=== PATIENT | female | born 1935 | race Caucasian/White ===

== ENCOUNTER 2016-09-12 18:23 | Emergency (ER) | payer OTHER ==
[~2016-09-12] VITALS: Ht 157.5 cm; Wt 60.1 kg
[~2016-09-12 18:23] MED LIST: ACIDOPHILUS1 EAC3 PO; ASCORBIC ACID; AZO CRANBERRY1 EAC1 PO; BACTRIM,SEPT1 TABLET PO; CEFTIN250 MG PO; COLACE100 MG PO; CRANBERRY450 M1 PO; CRANBERRY450 M3 PO; CYANOCOBAL1000 MCG/2 IM; DIOVAN160 MG PO; DOCUSATE SODIU100 MG PO; ENSURE113 GM PO; FLAGYL500 MG PO; GERI-LANTA LIQ355 ML PO; GLUCOCOM1 EACH MC; GLUCOMETER MC; HUMALOG100 UNIT/1 SC; INDERAL40 MG PO; LANTUS 10100 UNITS/ SC; LANTUS 3 M100 UNITS1 SC; LEVAQUIN500 MG PO; LEVAQUIN750 MG PO; LEVEMIR100 UNIT/2 SC; LISINOPRIL10 MG PO; LISINOPRIL5 MG PO; MACROBID100 MG PO; MIRALAX17 GM PO; MIRALAX255 GM PO; MIRTAZAPINE7.5 MG PO; NOVOLOG 10100 UNITS/ SC; ONDANSETRON HCL4 MG PO; PRINIVIL10 MG PO; PRINIVIL5 MG PO; PROPRANOLOL HCL40 MG PO; QUESTRAN PACKET4 GM PO; RANITIDINE HCL150 M1 PO; RANITIDINE HCL150 MG PO; REMERON15 M2 PO; TEST STRIPS MC; TYLENOL REGULA325 MG PO; VITRON-C TABLE1 EACH PO; ZANTAC150 MG PO; ZOFRAN4 MG PO; [UNRECOGNIZED DRUG - OTHER] PO; [UNRECOGNIZED DRUG - OTHER] PO
[2016-09-12 18:42] LABS: POINT-OF-CARE METER ID UU14100415
[2016-09-12 19:22] LABS: HEMATOCRIT 34.5 % (36.0-46.0); MCH 28.6 PG (29.0-34.0); MCHC 31.3 G/DL (30.0-36.0); MCV 91.5 FL (83-99); MEAN PLAT.VOLUME 9.9 uM^3 (9.5-12.4); PLATELET COUNT 310 K/uL (156-360); RBC DIS.WIDTH-CV 13.6 % (11.8-14.6); RBC DIS.WIDTH-SD 43.9 % (39-53); RED BLOOD COUNT 3.77 M/uL (3.80-5.20); WHITE BLOOD COUNT 9.4 K/uL (4.1-10.2)
[2016-09-12 19:35] LABS: CHLORIDE 105 mEq/L (99-109); POTASSIUM 4.9 mEq/L (3.7-5.4); SODIUM 139 mEq/L (136-147)
[2016-09-12 19:37] LABS: GLUCOSE 277 mg/dL (70-99)
[2016-09-12 19:38] LABS: ANION GAP 8 MEQ/L (2-14)
[2016-09-12 19:39] LABS: TOTAL BILIRUBIN 0.2 mg/dL (0.0-1.0)
[2016-09-12 19:41] LABS: ALKALINE PHOSPHATASE 73 IU/L (3-129); GFR ESTIMATE (CALCULATED) 38 mL/min/
[2016-09-12 19:42] LABS: UREA NITROGEN (BUN) 28 mg/dL (9-23)
[2016-09-12 19:44] LABS: LIPASE 290 U/L (1.0-51.0)
[2016-09-12 20:43] LABS: POINT-OF-CARE METER ID UU14100415
[2016-09-12 21:48] VITALS: BP 152/88
== END 2016-09-12 22:16 | disposition home or self-care (01) ==
LOC: EME → EDBD 18:23 → EME 22:16
PROVIDERS: Emergency Medicine
DX: E11.65 Type 2 diabetes mellitus with hyperglycemia (principal); Z79.4 Long term (current) use of insulin
CPT/HCPCS: 80048; 80053; 81003; 82948; 83690; 85027; 99281; 99285; J7030

== ENCOUNTER 2016-10-23 23:18 | Emergency (ER) | payer OTHER ==
[~2016-10-23] VITALS: Ht 157.5 cm; Wt 56.0 kg
[2016-10-23 23:51] LABS: HEMATOCRIT 41.3 % (36.0-46.0); MCH 28.3 PG (29.0-34.0); MCHC 30.5 G/DL (30.0-36.0); MCV 92.6 FL (83-99); MEAN PLAT.VOLUME 10.3 uM^3 (9.5-12.4); PLATELET COUNT 275 K/uL (156-360); RBC DIS.WIDTH-CV 14.3 % (11.8-14.6); RBC DIS.WIDTH-SD 48.3 % (39-53); RED BLOOD COUNT 4.46 M/uL (3.80-5.20)
[2016-10-24 00:22] LABS: CHLORIDE 103 mEq/L (99-109); POTASSIUM 4.4 mEq/L (3.7-5.4); SODIUM 140 mEq/L (136-147)
[2016-10-24 00:25] LABS: ANION GAP 11 MEQ/L (2-14)
[2016-10-24 00:28] LABS: GFR ESTIMATE (CALCULATED) 38 mL/min/
[2016-10-24 00:29] LABS: UREA NITROGEN (BUN) 21 mg/dL (9-23)
[2016-10-24 01:02] LABS: ADD MIUA? YES; BILIRUBIN NEGATIVE; BLOOD NEGATIVE; COLOR YELLOW ((YELLOW)); GLUCOSE (STRIP) NEGATIVE; KETONES 5; LEUKOCYTES SMALL; NITRITE NEGATIVE; PROTEIN (STRIP) 100; SPECIFIC GRAVITY 1.012 (1.000-1.030); UROBILINOGEN 0.2 MG/DL (0.2-1.0)
[2016-10-24 01:16] LABS: GLUCOSE 100 mg/dL (70-99)
[2016-10-24 01:32] LABS: POINT-OF-CARE METER ID UU14100415
[2016-10-24 01:36] LABS: CRYSTALS PRESENT; EPITHELIAL CELLS 2+ /HPF
[2016-10-24 01:38] LABS: BACTERIA 2+ /HPF; RED BLOOD CELLS NONE SEEN /HPF (0-5); UCUL ADDED? YES
[2016-10-24 01:40] LABS: AMORPHOUS URATES CRYSTALS OCC
[2016-10-24 01:42] LABS: MUCUS NONE SEEN /LPF
[2016-10-24] MEDS ORDERED: CIPRO250 MG PO (01:43)
[2016-10-24 03:46] LABS: POINT-OF-CARE METER ID UU14100415; POINT-OF-CARE USER ID NUTMMM10
[2016-10-24 04:00] VITALS: BP 120/46
[2016-10-26 13:18] LABS: POINT-OF-CARE METER ID UU13113702
== END 2016-10-24 03:40 | disposition home or self-care (01) ==
LOC: EME → EDBD 23:18 → EME 23:18
PROVIDERS: Emergency Medicine
DX: E11.649 Type 2 diabetes mellitus with hypoglycemia without coma (principal); E11.22 Type 2 diabetes mellitus with diabetic chronic kidney disease; I12.9 Hypertensive chronic kidney disease with stage 1 through stage 4 chronic kidney disease, or unspecified chronic kidney disease; N18.9 Chronic kidney disease, unspecified; Z79.4 Long term (current) use of insulin; N30.00 Acute cystitis without hematuria; F03.90 Unspecified dementia, unspecified severity, without behavioral disturbance, psychotic disturbance, mood disturbance, and anxiety; Z87.891 Personal history of nicotine dependence
CPT/HCPCS: 71010; 80048; 81003; 82948; 85027; 87086; 99281; 99285

== ENCOUNTER 2017-02-25 22:41 | Emergency (ER) | payer OTHER ==
[~2017-02-25] VITALS: Ht 165.1 cm; Wt 59.0 kg
[~2017-02-25 22:41] MED LIST changes: +CIPRO250 MG PO
[2017-02-25 23:25] LABS: HEMATOCRIT 35.6 % (36.0-46.0); MCH 28.8 PG (29.0-34.0); MCHC 31.2 G/DL (30.0-36.0); MCV 92.2 FL (83-99); MEAN PLAT.VOLUME 9.9 uM^3 (9.5-12.4); PLATELET COUNT 329 K/uL (156-360); RBC DIS.WIDTH-CV 13.8 % (11.8-14.6); RBC DIS.WIDTH-SD 46.2 % (39-53); RED BLOOD COUNT 3.86 M/uL (3.80-5.20); WHITE BLOOD COUNT 8.5 K/uL (4.1-10.2)
[2017-02-25 23:36] LABS: CHLORIDE 101 mEq/L (99-109); POTASSIUM 5.6 mEq/L (3.7-5.4); SODIUM 135 mEq/L (136-147)
[2017-02-25 23:39] LABS: ANION GAP 9 MEQ/L (2-14)
[2017-02-25 23:42] LABS: GFR ESTIMATE (CALCULATED) 33 mL/min/
[2017-02-25 23:43] LABS: UREA NITROGEN (BUN) 37 mg/dL (9-23)
[2017-02-25 23:47] LABS: GLUCOSE 464 mg/dL (70-99)
[2017-02-26 00:19] VITALS: BP 141/68
[2017-02-26 00:40] LABS: POINT-OF-CARE METER ID UU13113747
[2017-02-26 02:28] LABS: POINT-OF-CARE METER ID UU13113747
[2017-02-26] MEDS ORDERED: KEFLEX500 MG PO (12:29)
[2017-03-01 10:24] LABS: POINT-OF-CARE METER ID UU13113747
== END 2017-02-26 04:03 | disposition home or self-care (01) ==
LOC: EME → EDBD 22:41 → EME 22:41
PROVIDERS: Emergency Medicine
DX: E11.65 Type 2 diabetes mellitus with hyperglycemia (principal); E87.5 Hyperkalemia; G30.9 Alzheimer's disease, unspecified; F02.80 Dementia in other diseases classified elsewhere, unspecified severity, without behavioral disturbance, psychotic disturbance, mood disturbance, and anxiety; Z87.440 Personal history of urinary (tract) infections; Z87.891 Personal history of nicotine dependence; I10 Essential (primary) hypertension; Z79.4 Long term (current) use of insulin; Z85.028 Personal history of other malignant neoplasm of stomach; Z90.710 Acquired absence of both cervix and uterus
CPT/HCPCS: 80048; 82948; 85027; 99281; 99284; J7030

== ENCOUNTER 2017-02-26 10:52 | Emergency (ER) | payer OTHER ==
[~2017-02-26] VITALS: Ht 157.5 cm; Wt 60.1 kg
[2017-02-26 11:11] LABS: POINT-OF-CARE METER ID UU14100415
[2017-02-26 12:20] LABS: ADD MIUA? YES; BILIRUBIN NEGATIVE; BLOOD MODERATE; COLOR YELLOW ((YELLOW)); GLUCOSE (STRIP) >=500; KETONES NEGATIVE; LEUKOCYTES LARGE; NITRITE NEGATIVE; PROTEIN (STRIP) 30; SPECIFIC GRAVITY 1.009 (1.000-1.030); UROBILINOGEN 0.2 MG/DL (0.2-1.0)
[2017-02-26] MEDS ORDERED: KEFLEX500 MG PO (12:29)
[2017-02-26 12:37] VITALS: BP 150/68
[2017-02-26 12:40] LABS: POINT-OF-CARE METER ID UU14100415
[2017-02-26 12:50] LABS: HEMATOCRIT 43.5 % (36.0-46.0); MCH 28.3 PG (29.0-34.0); MCHC 30.8 G/DL (30.0-36.0); MCV 91.8 FL (83-99); PLATELET COUNT 331 K/uL (156-360); RBC DIS.WIDTH-CV 13.5 % (11.8-14.6); RBC DIS.WIDTH-SD 45.7 % (39-53); WHITE BLOOD COUNT 12.5 K/uL (4.1-10.2)
[2017-02-26 12:52] LABS: RED BLOOD COUNT 4.74 M/uL (3.80-5.20)
[2017-02-26 12:53] LABS: BACTERIA 3+ /HPF; CASTS PRESENT /LPF; CELLULAR CASTS 0-5 /LPF; EPITHELIAL CELLS 1+ /HPF; MUCUS NONE SEEN /LPF; UCUL ADDED? YES; WHITE BLOOD CELLS 15-20 /HPF (0-5)
[2017-02-26 12:55] LABS: CHLORIDE 105 mEq/L (99-109); POTASSIUM 5.4 mEq/L (3.7-5.4); SODIUM 139 mEq/L (136-147)
[2017-02-26 12:58] LABS: ANION GAP 10 MEQ/L (2-14)
[2017-02-26 13:00] LABS: GFR ESTIMATE (CALCULATED) 46 mL/min/
[2017-02-26 13:01] LABS: GLUCOSE 142 mg/dL (70-99); UREA NITROGEN (BUN) 29 mg/dL (9-23)
== END 2017-02-26 12:37 | disposition home or self-care (01) ==
LOC: EME 10:52
PROVIDERS: Emergency Medicine
DX: N39.0 Urinary tract infection, site not specified (principal); E11.9 Type 2 diabetes mellitus without complications; F03.90 Unspecified dementia, unspecified severity, without behavioral disturbance, psychotic disturbance, mood disturbance, and anxiety; K21.9 Gastro-esophageal reflux disease without esophagitis; E78.5 Hyperlipidemia, unspecified; I10 Essential (primary) hypertension; Z79.4 Long term (current) use of insulin; Z87.891 Personal history of nicotine dependence
CPT/HCPCS: 71010; 80048; 81003; 82948; 85027; 87077; 87086; 87186; 99281; 99284

== ENCOUNTER 2017-07-04 12:54 | Emergency (ER) | payer OTHER ==
[~2017-07-04] VITALS: Ht 157.5 cm; Wt 55.3 kg
[~2017-07-04 12:54] MED LIST changes: +KEFLEX500 MG PO
[2017-07-04 13:22] LABS: POINT-OF-CARE METER ID UU13113702
[2017-07-04 14:03] LABS: EOSINOPHIL (%) 3.4 % (0-5); EOSINOPHIL COUNT 0.3 K/uL (0-0.3); HEMATOCRIT 38.3 % (36.0-46.0); IMMATURE GRANULOCYTE (%) 0.4 % (0.0-0.7); INSTRUMENT ABS NEUTROPHIL CT 4.1 K/uL; MCH 29.3 PG (29.0-34.0); MCHC 31.3 G/DL (30.0-36.0); MCV 93.6 FL (83-99); MEAN PLAT.VOLUME 9.6 uM^3 (9.5-12.4); MONOCYTE (%) 15.1 % (3-12); MONOCYTE COUNT 1.2 K/uL (0-0.8); NEUTROPHIL (%) 54.1 % (45-76); NEUTROPHIL COUNT 4.1 K/uL (1.8-6.4); PLATELET COUNT 335 K/uL (156-360); RBC DIS.WIDTH-CV 14.4 % (11.8-14.6); RBC DIS.WIDTH-SD 49.7 % (39-53); RED BLOOD COUNT 4.09 M/uL (3.80-5.20); WHITE BLOOD COUNT 7.6 K/uL (4.1-10.2)
[2017-07-04 14:11] LABS: CHLORIDE 105 mEq/L (99-109); SODIUM 136 mEq/L (136-147)
[2017-07-04 14:13] LABS: GLUCOSE 240 mg/dL (70-99)
[2017-07-04 14:14] LABS: ANION GAP 5 MEQ/L (2-14)
[2017-07-04 14:17] LABS: GFR ESTIMATE (CALCULATED) 46 mL/min/
[2017-07-04 14:18] LABS: UREA NITROGEN (BUN) 24 mg/dL (9-23)
[2017-07-04 15:08] LABS: POINT-OF-CARE METER ID UU13113702
[2017-07-04 15:29] LABS: POINT-OF-CARE METER ID UU13113702
[2017-07-04 16:13] VITALS: BP 145/68
== END 2017-07-04 17:01 | disposition home or self-care (01) ==
LOC: EME 12:54
PROVIDERS: Emergency Medicine
DX: E11.65 Type 2 diabetes mellitus with hyperglycemia (principal); Z66 Do not resuscitate; E78.5 Hyperlipidemia, unspecified; F32.9 Major depressive disorder, single episode, unspecified; I10 Essential (primary) hypertension; K21.9 Gastro-esophageal reflux disease without esophagitis; D64.9 Anemia, unspecified; F03.90 Unspecified dementia, unspecified severity, without behavioral disturbance, psychotic disturbance, mood disturbance, and anxiety; Z87.440 Personal history of urinary (tract) infections; Z79.4 Long term (current) use of insulin; Z88.8 Allergy status to other drugs, medicaments and biological substances
CPT/HCPCS: 80048; 82948; 85025; 99281; 99284; J7120

== ENCOUNTER 2017-07-08 20:20 | Emergency (ER) | payer OTHER ==
[~2017-07-08] VITALS: Ht 162.6 cm; Wt 41.7 kg
[2017-07-08 20:56] LABS: BASOPHIL COUNT 0.1 K/uL (0-0.1); EOSINOPHIL (%) 3.4 % (0-5); EOSINOPHIL COUNT 0.2 K/uL (0-0.3); HEMATOCRIT 37.8 % (36.0-46.0); IMMATURE GRANULOCYTE (%) 0.3 % (0.0-0.7); INSTRUMENT ABS NEUTROPHIL CT 3.1 K/uL; LYMPHOCYTE COUNT 2.2 K/uL (1.0-2.8); MCH 29.3 PG (29.0-34.0); MCHC 31.7 G/DL (30.0-36.0); MCV 92.2 FL (83-99); MEAN PLAT.VOLUME 9.5 uM^3 (9.5-12.4); MONOCYTE (%) 17.4 % (3-12); MONOCYTE COUNT 1.2 K/uL (0-0.8); NEUTROPHIL (%) 45.6 % (45-76); NEUTROPHIL COUNT 3.1 K/uL (1.8-6.4); NRBC (%) 0.3 /100 WBC (0-0); PLATELET COUNT 314 K/uL (156-360); RBC DIS.WIDTH-SD 47.4 % (39-53); WHITE BLOOD COUNT 6.8 K/uL (4.1-10.2)
[2017-07-08 20:58] LABS: CARBON DIOXIDE (BICARBONATE) 31.1 MEQ/L (20-31)
[2017-07-08 21:06] LABS: CHLORIDE 101 mEq/L (99-109); POTASSIUM 4.8 mEq/L (3.7-5.4)
[2017-07-08 21:07] LABS: SODIUM 136 mEq/L (136-147)
[2017-07-08 21:08] LABS: GLUCOSE 324 mg/dL (70-99)
[2017-07-08 21:10] LABS: ANION GAP 9 MEQ/L (2-14)
[2017-07-08 21:12] LABS: GFR ESTIMATE (CALCULATED) 38 mL/min/
[2017-07-08 21:13] LABS: UREA NITROGEN (BUN) 18 mg/dL (9-23)
[2017-07-08 22:16] LABS: POINT-OF-CARE METER ID UU13113747
[2017-07-08 23:00] VITALS: BP 165/49
== END 2017-07-08 23:07 | disposition home or self-care (01) ==
LOC: EME → EDBD 20:20 → EME 23:07
PROVIDERS: Emergency Medicine
DX: E11.65 Type 2 diabetes mellitus with hyperglycemia (principal); Z79.4 Long term (current) use of insulin; F03.90 Unspecified dementia, unspecified severity, without behavioral disturbance, psychotic disturbance, mood disturbance, and anxiety; I10 Essential (primary) hypertension; Z87.440 Personal history of urinary (tract) infections; Z87.891 Personal history of nicotine dependence
CPT/HCPCS: 80048; 81003; 82803; 82948; 85025; 93005; 99281; 99285; J7030

== ENCOUNTER 2017-07-30 23:18 | Inpatient (IN) | payer OTHER ==
[~2017-07-30] VITALS: Ht 162.6 cm; Wt 51.8 kg
[2017-07-30 23:47] LABS: BASOPHIL (%) 0.4 % (0-1); BASOPHIL COUNT 0.1 K/uL (0-0.1); EOSINOPHIL (%) 1.3 % (0-5); EOSINOPHIL COUNT 0.2 K/uL (0-0.3); HEMATOCRIT 40.5 % (36.0-46.0); HEMOGLOBIN 13.2 G/DL (11.9-15.5); IMMATURE GRANULOCYTE (%) 0.6 % (0.0-0.7); LYMPHOCYTE (%) 11.1 % (15-42); LYMPHOCYTE COUNT 1.5 K/uL (1.0-2.8); MCH 30.3 PG (29.0-34.0); MCHC 32.6 G/DL (30.0-36.0); MCV 93.1 FL (83-99); MONOCYTE (%) 11.7 % (3-12); MONOCYTE COUNT 1.6 K/uL (0-0.8); NEUTROPHIL (%) 74.9 % (45-76); NEUTROPHIL COUNT 10.4 K/uL (1.8-6.4); RBC DIS.WIDTH-CV 15.2 % (11.8-14.6); RBC DIS.WIDTH-SD 52.5 % (39-53); RED BLOOD COUNT 4.35 M/uL (3.80-5.20); WHITE BLOOD COUNT 13.9 K/uL (4.1-10.2)
[2017-07-30 23:51] LABS: PLATELET COUNT 421 K/uL (156-360)
[2017-07-30 23:53] LABS: ALBUMIN 3.6 g/dL (3.2-4.8)
[2017-07-30 23:54] LABS: CHLORIDE 105 mEq/L (99-109); POTASSIUM 3.9 mEq/L (3.7-5.4); SODIUM 137 mEq/L (136-147)
[2017-07-30 23:56] LABS: TOTAL PROTEIN 8.5 g/dL (6.4-8.3)
[2017-07-30 23:59] LABS: ALKALINE PHOSPHATASE 357 IU/L (3-129)
[2017-07-31] LABS: CREATININE 0.9 mg/dL (0.6-1.3); GFR ESTIMATE (CALCULATED) > 59 mL/min/
[2017-07-31 00:01] LABS: AST (GOT) 166 IU/L (2-34); UREA NITROGEN (BUN) 21 mg/dL (9-23)
[2017-07-31 00:03] LABS: ALT (GPT) 248 IU/L (3-49)
[2017-07-31 00:07] LABS: GLUCOSE 37 mg/dL (70-99)
[2017-07-31 03:06] LABS: APPEARANCE CLOUDY ((CLEAR)); BILIRUBIN NEGATIVE; BLOOD NEGATIVE; COLOR AMBER ((YELLOW)); GLUCOSE (STRIP) >=500; KETONES NEGATIVE; LEUKOCYTES SMALL; NITRITE NEGATIVE; PROTEIN (STRIP) 100; SPECIFIC GRAVITY 1.011 (1.000-1.030); UROBILINOGEN 0.2 MG/DL (0.2-1.0)
[2017-07-31 03:24] LABS: RED BLOOD CELLS NONE SEEN /HPF (0-5)
[2017-07-31 03:25] LABS: AMORPHOUS URATES CRYSTALS 3+; BACTERIA 3+ /HPF; EPITHELIAL CELLS 1+ /HPF; MUCUS NONE SEEN /LPF; UCUL ADDED? YES
[2017-07-31 12:00] LABS: DIRECT BILIRUBIN 1.3 mg/dL (0.0-0.3)
[2017-07-31 17:04] VITALS: BP 145/67
[2017-07-31 17:56] LABS: INTER. NORMALIZED RATIO 1.1
[2017-07-31 17:59] LABS: PTT 33.7 SEC (25-37)
[2017-07-31] MEDS ORDERED: LOTRISONE15 GM TP (18:12)
[2017-07-31] MEDS ORDERED: AMARYL2 MG PO (18:13)
[2017-07-31] MEDS ORDERED: HUMALOG100 UNIT/2 SC (18:15)
[2017-07-31] MEDS ORDERED: ZESTRIL5 MG PO (18:16)
[2017-07-31] MEDS ORDERED: LEVEMIR FL100 UNIT/1 SC (18:16)
[2017-07-31] MEDS ORDERED: REMERON15 M2 PO (18:20)
[2017-07-31] MEDS ORDERED: INDERAL40 MG PO (18:21)
[2017-07-31] MEDS ORDERED: PNV PRENATAL P1 EACH PO (18:21)
[2017-07-31] MEDS ORDERED: SENNA8.6 MG PO (18:22)
[2017-07-31] MEDS ORDERED: ASCORBIC ACID500 M3 PO (18:23)
[2017-07-31] MEDS ORDERED: ORAZINC220 MG PO (18:24)
[2017-07-31] MEDS ORDERED: DUONEB 2.5-0.5 M3 ML AEROSOL (18:24)
[2017-07-31] MEDS ORDERED: PAIN RELIEF325 M1 PO (18:25)
[2017-07-31] MEDS ORDERED: MAALOX ADVANCE355 ML PO (18:26)
[2017-07-31] MEDS ORDERED: TUSSIN100 MG/5 M PO (18:27)
[2017-07-31 23:44] VITALS: BP 141/64
[2017-08-01 07:00] VITALS: BP 170/27
[2017-08-01 07:39] LABS: ALBUMIN 2.8 G/DL (3.2-4.8); ALKALINE PHOSPHATASE 286 IU/L (3-129); ALT (GPT) 157 IU/L (3-49); AST (GOT) 94 IU/L (2-34); CHLORIDE 105 MEQ/L (99-109); CREATININE 0.7 MG/DL (0.6-1.3); DIRECT BILIRUBIN 0.9 mg/dL (0.0-0.3); GFR ESTIMATE (CALCULATED) > 59 mL/min/; GLUCOSE 172 mg/dL (70-99); POTASSIUM 3.8 MEQ/L (3.7-5.4); SODIUM 137 MEQ/L (136-147); TOTAL BILIRUBIN 1.7 MG/DL (0.0-1.0); TOTAL PROTEIN 5.8 G/DL (6.4-8.3); UREA NITROGEN (BUN) 13 mg/dL (9-23)
[2017-08-01 07:49] LABS: HEMATOCRIT 33.1 % (36.0-46.0); HEMOGLOBIN 10.4 G/DL (11.9-15.5); MCH 29.3 PG (29.0-34.0); MCHC 31.4 G/DL (30.0-36.0); MCV 93.2 FL (83-99); PLATELET COUNT 309 K/uL (156-360); RBC DIS.WIDTH-SD 52.1 % (39-53); RED BLOOD COUNT 3.55 M/uL (3.80-5.20); WHITE BLOOD COUNT 8.6 K/uL (4.1-10.2)
[2017-08-01 12:26] VITALS: BP 165/61
[2017-08-01 16:11] VITALS: BP 138/61; BP 1385/61
[2017-08-01 20:51] VITALS: BP 165/72
[2017-08-01 23:34] VITALS: BP 127/62
[2017-08-02 07:55] LABS: Estimated Average Glucose 160 mg/dL (70-123); HEMOGLOBIN A1c (GLYCOHEMOGLOB) 7.2 % HGB (Below 5.7)
[2017-08-02 08:21] LABS: ALBUMIN 2.8 G/DL (3.2-4.8); ALKALINE PHOSPHATASE 238 IU/L (3-129); ALT (GPT) 143 IU/L (3-49); AST (GOT) 79 IU/L (2-34); CHLORIDE 102 MEQ/L (99-109); CREATININE 0.7 MG/DL (0.6-1.3); DIRECT BILIRUBIN 0.7 mg/dL (0.0-0.3); GFR ESTIMATE (CALCULATED) > 59 mL/min/; GLUCOSE 129 mg/dL (70-99); POTASSIUM 3.9 MEQ/L (3.7-5.4); SODIUM 137 MEQ/L (136-147); TOTAL BILIRUBIN 1.3 MG/DL (0.0-1.0); UREA NITROGEN (BUN) 10 mg/dL (9-23)
[2017-08-02 08:43] VITALS: BP 125/60
[2017-08-02 15:00] VITALS: BP 130/66
[2017-08-03 00:05] VITALS: BP 127/80
[2017-08-03 07:12] LABS: HEMATOCRIT 35.6 % (36.0-46.0); HEMOGLOBIN 11.6 G/DL (11.9-15.5); MCH 30.7 PG (29.0-34.0); MCHC 32.6 G/DL (30.0-36.0); MCV 94.2 FL (83-99); PLATELET COUNT 311 K/uL (156-360); RBC DIS.WIDTH-CV 14.7 % (11.8-14.6); RBC DIS.WIDTH-SD 51.2 % (39-53); RED BLOOD COUNT 3.78 M/uL (3.80-5.20); WHITE BLOOD COUNT 11.4 K/uL (4.1-10.2)
[2017-08-03 07:30] LABS: ALKALINE PHOSPHATASE 223 IU/L (3-129); ALT (GPT) 110 IU/L (3-49); AST (GOT) 50 IU/L (2-34); CHLORIDE 98 MEQ/L (99-109); CREATININE 0.7 MG/DL (0.6-1.3); GFR ESTIMATE (CALCULATED) > 59 mL/min/; GLUCOSE 185 mg/dL (70-99); POTASSIUM 3.7 MEQ/L (3.7-5.4); SODIUM 134 MEQ/L (136-147); TOTAL BILIRUBIN 1.3 MG/DL (0.0-1.0); TOTAL PROTEIN 6.5 G/DL (6.4-8.3); UREA NITROGEN (BUN) 8 mg/dL (9-23)
[2017-08-03 07:59] VITALS: BP 137/63
[2017-08-03 15:38] VITALS: BP 125/53
[2017-08-03 19:17] LABS: HEMATOCRIT 34.9 % (36.0-46.0); MCH 29.6 PG (29.0-34.0); MCHC 31.5 G/DL (30.0-36.0); MCV 93.8 FL (83-99); PLATELET COUNT 329 K/uL (156-360); RBC DIS.WIDTH-CV 14.5 % (11.8-14.6); RBC DIS.WIDTH-SD 50.6 % (39-53); RED BLOOD COUNT 3.72 M/uL (3.80-5.20)
[2017-08-03 19:42] LABS: ALKALINE PHOSPHATASE 185 IU/L (3-129); ALT (GPT) 97 IU/L (3-49); AST (GOT) 40 IU/L (2-34); DIRECT BILIRUBIN 0.4 mg/dL (0.0-0.3); IRON 16 MCG/DL (35-150); TOTAL BILIRUBIN 1.2 MG/DL (0.0-1.0); TOTAL PROTEIN 6.8 G/DL (6.4-8.3); TRANSFERRIN SATUR. 10 % (20-55)
[2017-08-03 19:59] LABS: FERRITIN 118 NG/ML (10-291)
[2017-08-03 23:25] VITALS: BP 136/81
[2017-08-04 07:40] VITALS: BP 116/58
[2017-08-04 08:51] LABS: HEMATOCRIT 35.6 % (36.0-46.0); HEMOGLOBIN 11.4 G/DL (11.9-15.5); MCH 30.4 PG (29.0-34.0); MCV 94.9 FL (83-99); PLATELET COUNT 326 K/uL (156-360); RBC DIS.WIDTH-CV 14.6 % (11.8-14.6); RED BLOOD COUNT 3.75 M/uL (3.80-5.20); WHITE BLOOD COUNT 10.3 K/uL (4.1-10.2)
[2017-08-04 09:49] LABS: ALBUMIN 2.9 G/DL (3.2-4.8); ALKALINE PHOSPHATASE 184 IU/L (3-129); ALT (GPT) 78 IU/L (3-49); AST (GOT) 34 IU/L (2-34); CHLORIDE 99 MEQ/L (99-109); CREATININE 0.8 MG/DL (0.6-1.3); GFR ESTIMATE (CALCULATED) > 59 mL/min/; GLUCOSE 121 mg/dL (70-99); POTASSIUM 4.2 MEQ/L (3.7-5.4); SODIUM 136 MEQ/L (136-147); TOTAL BILIRUBIN 1.3 MG/DL (0.0-1.0); TOTAL PROTEIN 6.2 G/DL (6.4-8.3); UREA NITROGEN (BUN) 11 mg/dL (9-23)
[2017-08-04 15:38] VITALS: BP 125/60
[2017-08-04 23:58] VITALS: BP 105/52
[2017-08-05 07:00] VITALS: BP 107/58
[2017-08-05] MEDS ORDERED: AMOX TR-K CLV1 EAC4 PO (08:30)
[2017-08-05] MEDS ORDERED: LEVEMIR100 UNIT/2 SC (08:30)
[2017-08-05 09:22] LABS: HEMATOCRIT 35.8 % (36.0-46.0); HEMOGLOBIN 11.6 G/DL (11.9-15.5); MCH 30.4 PG (29.0-34.0); MCHC 32.4 G/DL (30.0-36.0); PLATELET COUNT 392 K/uL (156-360); RBC DIS.WIDTH-CV 14.7 % (11.8-14.6); RBC DIS.WIDTH-SD 51.4 % (39-53); RED BLOOD COUNT 3.81 M/uL (3.80-5.20); WHITE BLOOD COUNT 13.3 K/uL (4.1-10.2)
[2017-08-05 09:26] LABS: ALKALINE PHOSPHATASE 161 IU/L (3-129); ALT (GPT) 64 IU/L (3-49); AST (GOT) 36 IU/L (2-34); CHLORIDE 97 MEQ/L (99-109); DIRECT BILIRUBIN 0.6 mg/dL (0.0-0.3); GFR ESTIMATE (CALCULATED) 57 mL/min/; POTASSIUM 3.7 MEQ/L (3.7-5.4); SODIUM 136 MEQ/L (136-147); TOTAL BILIRUBIN 1.3 MG/DL (0.0-1.0); UREA NITROGEN (BUN) 20 mg/dL (9-23)
[2017-08-05 09:28] LABS: GLUCOSE 63 mg/dL (70-99)
[2017-08-05 16:32] VITALS: BP 115/55
[2017-08-05 23:59] VITALS: BP 102/50
[2017-08-06 09:50] LABS: ALBUMIN 3.2 G/DL (3.2-4.8); ALKALINE PHOSPHATASE 162 IU/L (3-129); ALT (GPT) 49 IU/L (3-49); AST (GOT) 30 IU/L (2-34); CHLORIDE 99 MEQ/L (99-109); SODIUM 136 MEQ/L (136-147); TOTAL BILIRUBIN 1.2 MG/DL (0.0-1.0); TOTAL PROTEIN 6.7 G/DL (6.4-8.3)
[2017-08-06 09:51] LABS: GLUCOSE 136 mg/dL (70-99); UREA NITROGEN (BUN) 35 mg/dL (9-23)
[2017-08-06 09:52] LABS: GFR ESTIMATE (CALCULATED) 25 mL/min/; POTASSIUM 4.7 MEQ/L (3.7-5.4)
[2017-08-06 11:30] VITALS: BP 104/52
[2017-08-06 12:48] LABS: HEPATITIS B SURFACE ANTIGEN Nonreactive
[2017-08-06 12:49] LABS: HEPATITIS C ANTIBODY Nonreactive
[2017-08-06 12:50] LABS: ANTI-HEPATITIS A VIRUS (IGM) Nonreactive; ANTI-HEPATITIS B CORE (IGM) Nonreactive
[2017-08-06 15:47] LABS: APPEARANCE CLOUDY ((CLEAR)); BILIRUBIN NEGATIVE; BLOOD SMALL; COLOR AMBER ((YELLOW)); GLUCOSE (STRIP) 150; KETONES NEGATIVE; LEUKOCYTES NEGATIVE; NITRITE NEGATIVE; PROTEIN (STRIP) 100; SPECIFIC GRAVITY 1.018 (1.000-1.030)
[2017-08-06 16:29] LABS: EPITHELIAL CELLS 4+ /HPF; MUCUS 1+ /LPF
[2017-08-06 16:30] LABS: BACTERIA 3+ /HPF; UCUL ADDED? YES
[2017-08-06 16:57] VITALS: BP 106/52
[2017-08-06 23:50] VITALS: BP 111/54
[2017-08-07 07:29] VITALS: BP 97/51
[2017-08-07 08:30] LABS: HEMATOCRIT 34.3 % (36.0-46.0); HEMOGLOBIN 11.3 G/DL (11.9-15.5); MCH 30.3 PG (29.0-34.0); MCHC 32.9 G/DL (30.0-36.0); PLATELET COUNT 404 K/uL (156-360); RBC DIS.WIDTH-SD 47.7 % (39-53); RED BLOOD COUNT 3.73 M/uL (3.80-5.20); WHITE BLOOD COUNT 11.3 K/uL (4.1-10.2)
[2017-08-07 08:57] LABS: ALBUMIN 3.1 G/DL (3.2-4.8); ALKALINE PHOSPHATASE 131 IU/L (3-129); ALT (GPT) 47 IU/L (3-49); AST (GOT) 24 IU/L (2-34); CHLORIDE 93 MEQ/L (99-109); CREATININE 2.5 MG/DL (0.6-1.3); GFR ESTIMATE (CALCULATED) 20 mL/min/; GLUCOSE 305 mg/dL (70-99); POTASSIUM 3.8 MEQ/L (3.7-5.4); SODIUM 129 MEQ/L (136-147); TOTAL PROTEIN 6.6 G/DL (6.4-8.3); UREA NITROGEN (BUN) 49 mg/dL (9-23)
[2017-08-07 09:33] LABS: FOLIC ACID (FOLATE) > 22.0 NG/ML (5.0-22.0)
[2017-08-07 16:06] VITALS: BP 128/58
[2017-08-07 23:20] VITALS: BP 124/88
[2017-08-08 07:27] LABS: POTASSIUM 3.8 MEQ/L (3.7-5.4); UREA NITROGEN (BUN) 39 mg/dL (9-23)
[2017-08-08 07:32] LABS: CHLORIDE 106 MEQ/L (99-109); CREATININE 1.8 MG/DL (0.6-1.3); GFR ESTIMATE (CALCULATED) 29 mL/min/; GLUCOSE 74 mg/dL (70-99); SODIUM 138 MEQ/L (136-147)
[2017-08-08 08:32] VITALS: BP 128/57
[2017-08-08 15:43] VITALS: BP 145/66
[2017-08-08 23:13] VITALS: BP 144/64
[2017-08-09 07:11] LABS: CHLORIDE 106 MEQ/L (99-109); GFR ESTIMATE (CALCULATED) 42 mL/min/; SODIUM 139 MEQ/L (136-147); UREA NITROGEN (BUN) 24 mg/dL (9-23)
[2017-08-09 07:15] LABS: CREATININE 1.3 MG/DL (0.6-1.3); GLUCOSE 123 mg/dL (70-99)
[2017-08-09 07:31] VITALS: BP 162/82
[2017-08-09] MEDS ORDERED: LEVEMIR100 UNIT/2 SC (08:27)
[2017-08-09] MEDS ORDERED: FERROUS SULFAT325 MG PO (08:27)
[2017-08-09] MEDS ORDERED: DONEPEZIL HCL5 MG PO (08:27)
== END 2017-08-09 13:20 | DRG 445 ==
LOC: EME → EDBD 23:18 → EME 23:18 → EDOF 07-31 06:10 → 2EAST 07-31 06:10 → ENRESERV 07-31 06:30 → 2EAST 07-31 16:53
PROVIDERS: Emergency Medicine; Family Medicine; Internal Medicine; Specialist; Surgery
PROC: 0F9430Z Drainage of Gallbladder with Drainage Device, Percutaneous Approach (ICD-10-PCS; principal; 2017-08-01)
DX: K81.0 Acute cholecystitis (principal); N12 Tubulo-interstitial nephritis, not specified as acute or chronic; B96.89 Other specified bacterial agents as the cause of diseases classified elsewhere; N17.9 Acute kidney failure, unspecified; E11.649 Type 2 diabetes mellitus with hypoglycemia without coma; G30.9 Alzheimer's disease, unspecified; F02.80 Dementia in other diseases classified elsewhere, unspecified severity, without behavioral disturbance, psychotic disturbance, mood disturbance, and anxiety; K86.89 Other specified diseases of pancreas; F09 Unspecified mental disorder due to known physiological condition; I10 Essential (primary) hypertension; D64.9 Anemia, unspecified; K21.9 Gastro-esophageal reflux disease without esophagitis; E78.5 Hyperlipidemia, unspecified; N27.1 Small kidney, bilateral; N31.2 Flaccid neuropathic bladder, not elsewhere classified; F32.9 Major depressive disorder, single episode, unspecified; Z66 Do not resuscitate; Z87.440 Personal history of urinary (tract) infections; Z85.028 Personal history of other malignant neoplasm of stomach; Z90.3 Acquired absence of stomach [part of]; Z90.710 Acquired absence of both cervix and uterus; Z87.891 Personal history of nicotine dependence; Z79.4 Long term (current) use of insulin; Z82.49 Family history of ischemic heart disease and other diseases of the circulatory system
CPT/HCPCS: 49405; 70450; 74181; 76705; 80048; 80053; 80074; 80076; 81003; 82248; 82607; 82728; 82746; 82948; 83036; 83540; 83690; 84466; 85025; 85027; 85610; 85730; 86301 90; 87070; 87075; 87086; 87205; 94799; 99281; 99285; C1755; C1769; J0696; J1650; J1815; J2405; J3010; J7030